=== PATIENT | female | born 1970 | race African-American/Black ===

== ENCOUNTER 2025-02-24 00:14 | Emergency (ER) | payer BC ==
[~2025-02-24] VITALS: Ht 167.6 cm; Wt 81.0 kg
[2025-02-24 00:16] VITALS: BP 174/90; PULSE 86; RESP 18; O2SAT 98
== END 2025-02-24 00:39 | disposition left against medical advice (07) ==
LOC: ER 00:14
DX: R07.9 Chest pain, unspecified (principal)
CPT/HCPCS: 99281